=== PATIENT | female | born 1950 | race Caucasian/White ===

== ENCOUNTER 2019-10-14 10:16 | Inpatient (IN) | payer MEDICARE, OTHER ==
[2019-10-07 09:47] LABS: ABSOLUTE BASOPHILS 0.1 thou/uL (0.0-0.2); ABSOLUTE EOSINOPHILS 0.1 thou/uL (0.0-0.7); ABSOLUTE LYMPHOCYTES 1.3 thou/uL (0.8-5.3); ABSOLUTE MONOCYTES 0.4 thou/uL (0.0-1.2); ABSOLUTE NEUTROPHILS 1.9 thou/uL (1.6-8.1); BASOPHILS 1.5 %; EOSINOPHILS 3.4 %; HEMATOCRIT 40.3 % (37.0-47.0); HEMOGLOBIN 13.4 gm/dL (12.0-15.0); LYMPHOCYTES 34.9 %; MCH 31.5 pg (26.0-34.0); MCHC 33.2 g/dL (28.0-37.0); MCV 94.9 fL (80.0-100.0); MONOCYTES 9.4 %; NUCLEATED RBCS 0 /100WBC; PLATELET COUNT* 256 thou/uL (150-400); POLYS 50.8 %; RBC 4.25 mil/uL (4.20-5.00); RDW-CV 15.1 % (10.5-14.5); WBC 3.8 thou/uL (4.0-11.0)
[2019-10-07 09:52] LABS: APTT 26.4 Seconds (25.0-31.3); PROTIME 10.5 Seconds (9.20-11.50)
[2019-10-07 09:54] LABS: ALBUMIN 3.6 g/dL (3.4-5.0); CALCIUM 8.4 mg/dL (8.5-10.1); CREATININE 0.7 mg/dL (0.6-1.3); POTASSIUM 3.7 mmol/L (3.5-5.1); TOTAL BILIRUBIN 0.3 mg/dL (<0.1-1.0); TOTAL PROTEIN 7.1 g/dL (6.4-8.2)
[2019-10-07 11:00] LABS: ESR (SEDRATE) 5 mm/hr (0-30)
[~2019-10-14] VITALS: Ht 167.6 cm; Wt 70.3 kg
[~2019-10-14 10:16] MED LIST: FLEXERIL PO; PROTONIX40 M1 PO; VALACYCLOVIR1000 MG PO
[2019-10-14 14:25] VITALS: BP 140/84
[2019-10-14 18:26] VITALS: BP 125/80
--- NOTE | 2019-10-14 18:31 | NUR ---
PT ADMITTED POST LEFT KNEE SURGERY. PT ORIENTED TO ROOM. MEDS GIVEN ORDERED. PT EDUCATED ON FALL RISK PRECAUTIONS AND USING CALL LIGHT. FALL RISK PRECAUTIONS IN PLACE. HOURLY ROUNDING COMPLETED. WILL CONTINUE TO MONITOR.
[2019-10-14 18:48] VITALS: BP 125/80
[2019-10-14] MEDS ORDERED: ELIQUIS2.5 MG PO (19:03)
[2019-10-14] MEDS ORDERED: OXYCODONE HCL 55 MG PO (19:03)
[2019-10-14] MEDS ORDERED: TRAMADOL 50 MG50 MG PO (19:04)
[2019-10-14 19:15] VITALS: BP 125/80
[2019-10-14 20:01] VITALS: BP 117/59
[2019-10-15] VITALS (7 sets, daily range): BP systolic 108–152; BP diastolic 44–86
--- NOTE | 2019-10-15 04:31 | NUR ---
ASSUMED CARE OF PT 10/14/19 AT APPROX 1915. PT A&OX4, ON 2L NC, VSS, ON-Q PUMP IN PLACE. PAIN MEDS REQUESTED AND GIVEN ORDERED. 0100 PAITENT UNABLE TO VOID, BLADDER SCAN INDICATED 770ML, PHYSICIAN CONTACTED - ORDER GIVEN FOR ONETIME STRAIGHT CATH - CATHATER OUTPUT 575ML. WILL CONTINUE TO MONITOR.
[2019-10-15 05:14] LABS: HEMATOCRIT 33.3 % (37.0-47.0); HEMOGLOBIN 11.4 gm/dL (12.0-15.0)
--- NOTE | 2019-10-15 16:00 | NUR ---
UNABLE TO SEE PT.TODAY, THERAPY AND THEN NURSING WITH PT. WILL SEE IN AM.
--- NOTE | 2019-10-15 19:44 | NUR ---
patient reports pain 10/10. received all meds possible. I sent a message to Dr Nava with a list of received meds, report of pain 10/10 and made patient aware that the doctor has been contacted. 19:40 message sent On Q pump Dilaudid 1 mg 18:32 oxycodone 10 mg 18:03 Tramadol 50 mg 16:27 all options have been exhausted at this time.
--- NOTE | 2019-10-15 19:51 | NUR ---
Dr Nava returned my call promptly at 19:50. She reviewed the patients recent medication administration. Due to safety issues and the well being of the patient she has advised to not add any more medication at this time. I will continue to administer only what is prescribed to the patient and monitor vital signs.
[2019-10-16 04:04] LABS: HEMATOCRIT 30.5 % (37.0-47.0); HEMOGLOBIN 10.5 gm/dL (12.0-15.0)
--- NOTE | 2019-10-16 05:43 | NUR ---
PATIENT REPORTS PAIN AT 9/10 AT ALL TIMES EVEN AFTER MED ADMINISTRATION. SHE HAS THE ON Q PUMP AND HAS RECEIVED DILAUDID 1 MG, OXYCODONE 10 MG AND TRAMADOL 50 MG. SHE IS ASLEEP ON EVERY HOURLY ROUND CHECK. NO REPORTS OF NAUSEA. MARCOS HOSE, CALF PUMPS, ICE PACK IN PLACE. UP WITH ASSISTANCE TO COMMODE, NO ISSUES WITH VOIDING. ON ROOM AIR. WORKING WITH PHYSICAL THERAPY. MAY D/C TODAY IF PAIN MANAGED. WILL CONTINUE TO MONITOR.
[2019-10-16 07:39] VITALS: BP 100/49
[2019-10-16 16:00] VITALS: BP 117/63
--- NOTE | 2019-10-16 16:15 | NUR ---
SPOKE WITH PT.IN ROOM. SHE WAS ALERT AND ORIENTED,TALKATIVE. SHE LIVES WITH HER . HE WILL BE WITH HER AT DISCHARGE. HE HAS TAKEN SEVERAL WEEKS OFF WORK. SHE HAS A WALKER SHE BORROWED FROM A FRIEND. SHE SAID THERAPIST IS THINKING SHE MAY NEED A NEW ONE THIS MAY BE THE WRONG HEIGHT. SHE PLANS TO COME TO OUTPT THERAPY AT [facility]. SHE IS A RETIRED RN. COPAY FOR [facility] IS $109 AT [facility] IN [place]. SHE SAID SHE CAN AFFORD THIS. HOPES TO GO HOME TOMORROW. CM WILL FOLLOW.
--- NOTE | 2019-10-16 16:36 | NUR ---
PT CONTINUES TO REPORT PAIN NOT RELIEVED BY MEDICATIONS. PRN PAIN MEDICATION AND ICE PACKS PROVIDED. UP WITH ASSIST X1. PROGRESSING TOWARDS GOALS.
[2019-10-16 21:23] VITALS: BP 124/73
--- NOTE | 2019-10-17 04:48 | NUR ---
PAIN IS WELL CONTROLLED. SHE WAS ASLEEP ENTIRE NIGHT. SHE CAN GET UP STANDBY ASSIST TO RESTROOM. SHE RECEIVED OXYCODONE Q3 AND TRAMADOL Q6. SHE IS USING ICE PACKS ON HER KNEE. LIDOCAINE PATCH STILL IN PLACE. WORKING WITH PT. WILL CONTINUE TO MONITOR.
[2019-10-17 07:55] VITALS: BP 130/63
[2019-10-17 09:58] VITALS: BP 125/80
[2019-10-17] MEDS ORDERED: ASPIRIN EC325 M1 PO (13:05)
--- NOTE | 2019-10-17 13:10 | NUR ---
CONFIRMED WITH [employer] THAT PT.CAN BE ISSUED A NEW FRONT WHEEL WALKER. SHE SAID YES. FAXED FACE SHEET AND ORDER TO HER. GAVE ORDER TO MECCA MCKNIGHT. HE WILL GIVE PT.WALKER PRIOR TO DISCHARGE. FAXED THERAPY ORDERS TO [facility]. THEY WILL CALL HER TO SET UP OUTPT.APPTS.
--- NOTE | 2019-10-17 13:28 | NUR ---
ASSUMED CARE OF PT AROUND 0730 THIS AM. REFER TO ASSESSMENT. PT PARTICIPATED WITH PHYSICAL THERAPY AND OK TO DC HOME. PHYSICIAN AND SURGEON GAVE DISCHARGE ORDERS. DISCHARGE ORDERS GIVEN TO PT AND PT VERBALIZES UNDERSTANDING. PT REQUESTING TO DO OUTPATIENT THERAPY OPPOSED TO HOME HEALTH. PT GIVEN WALKER TO DC HOME WITH. PT GIVEN THREE NEW PRESCRIPTIONS. NO OTHER CONCERNS AT THIS TIME. CLWR. WCTM.
--- NOTE | 2019-10-17 13:30 | NUR ---
ON Q PUMP REMOVED PRIOR TO DISCHARGE.
--- NOTE | 2019-10-21 15:25 | OP ---
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 PROCEDURE: Left total knee arthroplasty. SURGEON: Juan Short DO BURRER MARKER AXLE: Alex Motta DO SECOND CONSTRUCTION WORKER: SAMIA Hahn ANESTHESIA: Spinal anesthetic with sedation as well as an adductor block. ANTIBIOTICS: 2 g Ancef IVPB 30 minutes prior to incision. ESTIMATED BLOOD LOSS: 175 mL. COMPLICATIONS: None. IMPLANTS: A Saab [employer]hew total knee Journey II total knee system with a size 10 articular insert posterior stabilized, a 32 mm oval patella, a size 5 left tibial baseplate, a size 7 left Oxinium Journey II bicruciate femoral component. Vancomycin 2 grams powder was placed topically, TXA 1 gram IV preoperatively. INDICATIONS FOR SURGERY: The patient is a 69-year-old female with longstanding severe knee pain. She is here today for elective surgical intervention. She has failed conservative treatment to date. Risks and complications discussed in detail and have been listed on her preoperative chart and have been gone over [place] [id number] OPERATIVE REPORT Name: KAYY STORY Room: [address]#: [id number] Admission: 10/14/19 Attend Phys: Meet Garrido Discharge: 10/17/19 Date of : 54 Report #: [id number] with her again today along with her , Jimenez. All questions were answered and signed informed consent has been attached to chart and her knee is marked preoperatively for timeout technique. DESCRIPTION OF PROCEDURE: The patient was taken to the operating suite and placed on operating room table in supine position. Following a spinal anesthetic, the left leg was prepped and draped in usual sterile fashion with tourniquet to proximal left thigh. Timeout technique was utilized to verify appropriate surgical site, procedure, concerns, implants, and allergies. The incision was marked with an indelible marking pen. Initially, the surgery was started without a tourniquet; however, tourniquet was utilized later to control bleeding during cementing. The incision was carried through skin and subcutaneous tissue along the midline aspect of the knee, approximately 14 cm in length, down to the extensor mechanism. A median parapatellar incision was then performed. The kneecap was everted. The knee was flexed to 120 degrees. It should be noted that extension was limited to -5 degrees prior to surgery. Flexion was good. The lateral aspect of the femoral condyle was completely devoid of articular cartilage. There was osteophytic lipping into the lateral femoral condyle as well. 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 With use of a rongeur, the osteophytes were removed. The distal femur was drilled with the intramedullary drill. Intramedullary guide was then placed. The distal cutting block was placed at 9 mm from the most distal aspect of the knee. It was pinned into place. The distal femoral cut was performed. The cutting block was removed. The external tibial guide was then aligned in all planes. The proximal tibia was resected at 9 mm from the highest point on the medial aspect of the tibia. The knee was held in extension. An extension block was placed in the knee to make certain appropriate resection was performed, which it was. Therefore, all pins were removed. The femur was then measured anterior to posterior. The appropriate 3-degree external rotational drill holes were performed on the distal femur. The 5-in-1 cutting block was impacted firmly into place, held in place with threaded pins. The anterior and posterior condylar cuts followed by anterior and posterior chamfer cuts were then performed. Cutting block was removed. All bony wafers were removed. The anterior cruciate ligament and posterior cruciate ligament removed The tibia was then measured. All meniscal structures were removed sharply. The appropriate-sized tibial tray was aligned in all planes, pinned into place. A trial femoral component was then impacted firmly into place. With the trial femoral component in place and pinned into place, the intercondylar notch was reamed to accept the final box posterior stabilized knee. Once reaming was completed, a rongeur used to remove all bony fragments. Copious irrigation carried out throughout the knee. The trap door was placed into the femoral component and a trial reduction was performed with various-sized posterior stabilized articular inserts. With the knee in extension, the patella was prepared with free hand cut, leaving 16 mm of thickness of patella remaining. Patella was measured, drilled, and a 3-hole patellar button was applied. Knee was placed through range of motion, found to [place] [id number] OPERATIVE REPORT Name: KAYY STORY Room: [address] IN [facility].#: [id number] Admission: 10/14/19 Attend Phys: Meet Garrido Discharge: 10/17/19 Date of : 54 Report #: [id number] have anatomic patellar tracking with excellent stability. With the size 10 spacer, excellent range of motion was obtainable with 0-130 degrees without difficulty. Excellent stability on anterior drawers testing. The final components were then obtained. Trial components were removed. The tibia was prepared before removing the final tibial trial with the center drill and the cruciform jig. Small drill holes were made in the sclerotic bone. Posterior condyle of the femur prepared with the use of a rongeur. The posterior capsule knee was injected with the anesthetic solution. The pulsatile lavage was utilized to thoroughly irrigate the knee. The knee was thoroughly dried. Two bags of Biomet cement were mixed on the back table. The cement was placed onto the posterior aspect of the final components immediately while still wet. It was then placed into the interstices of bone under pressurization with cement gun, starting with the tibia, then the femur, then the patella itself. Final implants were impacted firmly into place starting with the tibial tray, then the femur, then the patella. All excess cement was removed sharply. A 10 mm spacer was placed to the knee and the knee was held in full extension. Once again, all excess cement was removed. The patellar clamp was applied. Once appropriate position, the knee was checked for range of motion. The final 10 mm spacer was obtained, snapped into place. The knee was thoroughly irrigated, sprinkled with vancomycin powder throughout the entire wound topically. The knee was then held at 90 degrees with pressurization across the knee until complete cement hardening occurred. The knee's range of motion was easily 0-130 degrees range of motion with excellent stability throughout. The knee was closed with #1 Vicryl [id number] fascial suture to the extensor mechanism. This was then augmented with #1 Quill throughout the entire extensor mechanism in running fashion. Skin was reapproximated with 2-0 Monocryl subcutaneous sutures followed by a running 3-0 Stratafix subcuticular suture, reinforced with Dermabond glue to the skin. A Mepilex dressing with a thigh high MARCOS hose was applied. The patient tolerated the procedure well and was taken to recovery room in stable condition. No complications were encountered. Final instrument counts and sponge counts were correct x 2. <ELECTRONICALLY SIGNED> By: Juan Short DO 10/21/19 [id number] [id number] Short DO /mirna
== END 2019-10-17 13:45 | disposition home health service (06) | DRG 470 ==
LOC: M.PRE 10:16 → M.SUR 12:50 → EDSTATUS 12:51 → M.PRE 12:53 → M.TBA 12:58 → M.ORTHSURG 12:58 → M.TBA 12:58 → M.ORTHSURG 16:47
PROVIDERS: Orthopaedic Surgery; ADMIT Internal Medicine; ATTEND Internal Medicine
PROC: 0SRD069 Replacement of Left Knee Joint with Oxidized Zirconium on Polyethylene Synthetic Substitute, Cemented, Open Approach (ICD-10-PCS; principal; 2019-10-14)
DX: M17.12 Unilateral primary osteoarthritis, left knee (principal); G62.9 Polyneuropathy, unspecified; K21.9 Gastro-esophageal reflux disease without esophagitis; I83.92 Asymptomatic varicose veins of left lower extremity; Z79.899 Other long term (current) drug therapy; Z90.710 Acquired absence of both cervix and uterus; Z03.818 Encounter for observation for suspected exposure to other biological agents ruled out